=== PATIENT | male | born 1965 | race Caucasian/White ===

== ENCOUNTER → 2017-07-24 | Outpatient (REF) | payer BC ==
[~2017-07-24] MED LIST: ANAS1TAB34 PO; LEVO-85 PO; METR-1 PO; ONDA4TAB PO; OXYC-865 PO; TEST200V IM
[2017-07-24 10:46] LABS: PLATELET COUNT, AUTOMATED 204 K/uL (150-450)
== END ==
PROVIDERS: ATTEND Family Medicine
DX: R06.02 Shortness of breath (principal)
CPT/HCPCS: 82040; 82247; 82310; 82374; 82435; 82553; 82565; 82947; 83615; 83880; 84075; 84132; 84155; 84295; 84450; 84460; 84484; 84520; 85025; 85379

== ENCOUNTER 2018-08-16 02:25 | Day surgery (SDC) | payer BC ==
[~2018-08-16] VITALS: Ht 182.9 cm; Wt 102.5 kg
[2018-08-16] VITALS (7 sets, daily range): BP systolic 106–146; BP diastolic 64–95
[~2018-08-16 02:25] MED LIST changes: +ALBUTEROL INH; +FLUT1AER INH
[2018-08-16] MEDS ORDERED: NORMOSOL R SOLN(*) 1000 ML BAG 1,000 ML IV PRN (07:55)
[2018-08-16] MEDS ORDERED: LIDOCAINE/SOD BICARB 8.4% SYR ID ONE (07:55)
[2018-08-16] MEDS ORDERED: PROPOFOL EMUL(*) 10MG/ML 20 ML 40 ML ONE (07:57)
[2018-08-16] MEDS ORDERED: LIDOCAINE MPF 1% 5 ML VIAL ONE (07:57)
--- NOTE | 2018-08-16 09:17 | NUR ---
0917- PT BROUGHT TO STEP DOWN BAY 3, PT IN LL POSITION, DR. SOLITARIO HOLDING MANDIBLE SUPPORT D/T OCC OBSTRUCTING, PT MAINTAINING SATS, RESPIRATIONS AND AIRWAY ON 8 LPM VIA OXY MASK, VSS, SBAR REPORT FROM DR. SOLITARIO AND ISIAH 0921- PT MAINTAINING OWN AIRWAY WILL MONITOR FOR OBSTRUCTION, DECREASED O2 TO 5LPM VIA OXY MASK 09- EYES OPEN, DISORIENTED 927- PT REPOSITIONED ON TO BACK 09- PT REMAINS DROWSY AND SLIGHTLY DISORIENTED 09- VSS, PT VERBAL AND RESPONSIVE STILL REMAINS DROWSY
--- NOTE | 2018-08-16 09:37 | NUR ---
0937- PT PLACED ON RA, PT IS A/O X 3, PT TOLERATING SMALL SIPS OF WATER
--- NOTE | 2018-08-16 09:55 | NUR ---
0955- PT A/O X 3, REVIEWED D/C INSTRUCTIONS WITH PT AND
--- NOTE | 2018-08-16 10:03 | NUR ---
1003- SL IV 1005- ORTHOSTATIC VSS 1008- PT AMBULATORY TO RESTROOM, STABLE GAIT NOTED 1012- D/C IV WITH CATH INTACT, PRESSURE DRESSING APPLIED WITH GAUZE AND COBAND 1015- PT DRESSED 1017- PT AMBULATORY TO LOBDENAE ACCOMPANIED BY ALIS AND JENNY TILLEY
== END 2018-08-16 10:17 | disposition home or self-care (01) ==
LOC: OR 02:25
PROVIDERS: ATTEND Family Medicine
DX: Z12.11 Encounter for screening for malignant neoplasm of colon (principal); K57.30 Diverticulosis of large intestine without perforation or abscess without bleeding
CPT/HCPCS: 00812; 45378; J2001; J2704